=== PATIENT | male | born 1980 | race Caucasian/White ===

== ENCOUNTER 2019-09-11 19:33 | Emergency (ER) | payer MEDICAID ==
[~2019-09-11] VITALS: Ht 188 cm; Wt 93.0 kg
--- NOTE | 2019-09-11 19:40 | NUR ---
Patient to ER H1 for evaluation. Side rails up.
--- NOTE | 2019-09-11 19:44 | NUR ---
ER Dr. Hernandez at bedside examining patient.
[2019-09-11 19:45] VITALS: BP_SYST 138
--- NOTE | 2019-09-11 19:45 | NUR ---
Pt BIB [employer] for medical clearance due to hx of diabetes and noncompliance with medication. Pt denies any symptoms or pain at this time. Vital signs are within normal limits. Will continue to monitor.
--- NOTE | 2019-09-11 20:00 | NUR ---
Blood Glucose is 278. Dr. Hernandez notified.
[2019-09-11] MEDS ORDERED: INSULIN REGULAR, HUMAN 10 UNITS/0.1 ML INJ SUBCUT ONE ×2 (20:15→21:15)
--- NOTE | 2019-09-11 20:51 | NUR ---
Blood Glucose 266 after [address] Hernandez aware.
--- NOTE | 2019-09-11 21:55 | NUR ---
Blood sugar is 216 after additional 8 units of Insulin. ER MD Hernandez aware.
[2019-09-11 22:27] VITALS: BP_SYST 132
--- NOTE | 2019-09-11 22:28 | NUR ---
Patient given written and verbal discharge instructions and verbalizes understanding. ER MD discussed with patient the results and treatment provided. Patient in stable condition. ID arm band removed. Patient educated on pain management and to follow up with PMD. Pain Scale 0. Opportunity for questions provided and answered. Medication side effect fact sheet provided.
== END 2019-09-11 22:27 ==
LOC: SED 19:33
DX: Z02.89 Encounter for other administrative examinations (principal); E11.9 Type 2 diabetes mellitus without complications
CPT/HCPCS: 82962; 96372; 99283; J1815